=== PATIENT | female | born 1935 | race Caucasian/White ===

== ENCOUNTER 2018-09-20 08:31 | Inpatient (IN) ==
--- NOTE | 2018-09-20 09:16 | PROVIDER DOCUMENTATION ---
HPI-General Adult - General Chief Complaint: Edema Stated Complaint: LEFT LEG SWOLLEN Time Seen by Provider: 09/20/18 09:04 Source: patient, family Allergies/Adverse Reactions: Patient Allergies Allergy/AdvReac Type Severity Reaction Status Date / Time nitrofurantoin AdvReac RASH Verified 10/05/16 09:44 macrocrystalline * [From Macrodantin] Home Medications: Home Medication List Medication Instructions Recorded Confirmed Last Taken Type Aspirin [Aspir-Low] 81 mg PO DAILY 10/05/16 10/05/16 10/04/16 08:00 History Benzonatate [Tessalon Perle] 100 mg PO Q8H PRN PRN #15 capsule 10/05/16 Unknown Rx Hydrocodone/Acetaminophen [[place] 1 each PO Q6H PRN PRN #20 tablet 10/05/16 Unknown Rx 10-325 Tablet] Omeprazole [Prilosec] 40 mg PO DAILY 10/05/16 10/05/16 10/04/16 07:30 History - History of Present Illness -Gen Adult Nature of Presenting Problems: PLEASANT 83 YEAR OLD WITH NO MEDICAL HISTORY STATES SHE ONLY TAKES PRILOSEC AT HOME CAME IN TODAY WITH CONCERN OF LEFT LOWER EXTREMITY SWELLING SINCE THURSDAY. PATIENT STATES IT STARTED THURSDAY EVENING BUT HAS GETTING PROGRESSIVELY WORSEN. PATIENT DENIES RECENT TRAVEL, INJURY, OR HOSPITALIZATION. STATS SHE HAS HAD RIGHT KNEE REPLACEMENT 7 YEARS AGO; NOT LEFT. STATES SHE HAS BOTH "VEIN STRIPPED" OF HER BOTH BILATERAL LOWER EXTREMITY DUE TO VARICOSE VEIN TWO YEAR AGO. Review of Systems - Adult - REVIEW OF SYSTEMS - ADULT Constitutional: reports: no symptoms reported Eyes: reports: no symptoms reported Ears, Nose, Mouth & Throat: reports: no symptoms reported Cardiovascular: reports: no symptoms reported Respiratory: reports: no symptoms reported. denies: cough, dyspnea on exertion , shortness of breath, wheezing Gastrointestinal: reports: no symptoms reported Genitourinary: reports: no symptoms reported Musculoskeletal: reports: other (LEFT LOWER EXTREMITY SWELLING.) Integumentary: reports: no symptoms reported Neurological: reports: no symptoms reported Psychiatric: reports: no symptoms reported Endocrine: reports: no symptoms reported Hematologic/Lymphatic: reports: no symptoms reported Allergic/Immunologic: reports: no symptoms reported Past History - Adult - PAST MEDICAL HISTORY-ADULT Review of Records: reports: Old Records Reviewed Major Childhood Illnesses: reports: denies history Cardiovascular: reports: denies history Respiratory: reports: denies history Gastrointestinal: reports: GERD Obstetrical/Gynecological: reports: denies history Genitourinary: reports: denies history Musculoskeletal: reports: denies history Neurological: reports: denies history Endocrine/Immune: reports: denies history Other Conditions: reports: denies history - PRIOR SURGERIES/PROCEDURES Surgical/Procedure History: reports: appendectomy, hysterectomy, tonsillectomy - IMMUNIZATION STATUS Childhood Immunizations: See Nurse Assessment Flu Vaccine: See Nurse Assessment - FAMILY HISTORY Family History: reviewed, not pertinent Physical Exam-General - PHYSICAL EXAM-ADULT Initial Vital Signs Reviewed: Yes - CONSTITUTIONAL General Appearance: appears well, alert, no apparent distress - EYES Eyes: PERRL/EOMI - HEAD, EARS, NOSE, MOUTH & THROAT HENMT: normocephalic/atraumatic, moist mucous membranes, normal ENT inspection - NECK Neck: non-tender, full range of motion, supple - RESPIRATORY Respiratory: chest non-tender, lungs clear, normal breath sounds, no pleuratic chest pain, no respiratory distress, no accessory muscle use - CARDIOVASCULAR Cardiovascular: normal peripheral pulses, regular rate, rhythm, no edema, no gallop, no JVD, no murmur - GASTROINTESTINAL (ABDOMEN) Abdominal Exam: normal bowel sounds, non tender, soft - MUSCULOSKELETAL Back Exam: normal inspection, no CVA tenderness, no vertebral tenderness Extremity: normal range of motion, non-tender, normal gait, swelling (COMPLETE LEFT LOWER EXTREMITY; PERIPHERAL PULSE INTACT.) - SKIN Integumentary: normal color, normal turgor, warm/dry - NEUROLOGIC Neurologic: grossly normal - PSYCHIATRIC Psych/Mental Status: normal mood/affect, normal thought content, normal thought process, oriented x 3 Progress - PLAN OF CARE/RESULTS Progress/Plan/Lab Results: Vital Signs - 8 hr 09/20/18 08:38 Temperature 97.3 F L Pulse Rate 77 Respiratory Rate 18 Blood Pressure 138/91 O2 Sat by Pulse Oximetry 96 Orders Category Date Time Status Nursing- Obtain EKG once Care 09/20/18 09:11 Ordered BASIC METABOLIC PANEL [CHEM] Stat Lab 09/20/18 09:11 Uncollected CBC WITH ELECTRONIC DIFF [HEME] Stat Lab 09/20/18 09:11 Uncollected CK PROFILE [SP CHEM] Stat Lab 09/20/18 09:11 Uncollected PRO B-NATRIURETIC PEPTIDE Stat Lab 09/20/18 09:11 Uncollected PROTIME WITH INR [COAG] Stat Lab 09/20/18 09:11 Uncollected PTT [COAG] Stat Lab 09/20/18 09:11 Uncollected TROPONIN T Stat Lab 09/20/18 09:11 Uncollected EKG [EKG] Stat Ther 09/20/18 09:11 Ordered Venous U/S Left Leg Stat Ther 09/20/18 09:10 Ordered Result Diagrams: 09/20/18 09:11 09/20/18 09:11 - REASSESSMENT Reassessment #1 Time Reassessed: 10:08 Status: other (PER OFFENSIVE COORDINATOR; COMPLETE OCCLUSION OF BOTH DEEP AND SUPERFICIAL. PAGING SURGEON.) Reassessment #2 Time Reassessed: 10:55 Status: other (SPOKE TO SURGEON OF PATIENT WITH NO PAST MEDICAL HISTORY WITH US REVEALING COMPLETE OCCLUSION OF SUPERFICIAL AND DEEP AND LOWER EXTREMITY COLD TO TOUCH; SURGEON RECOMMEND SPEAKING/CONSULTING TO HOSPITALIST FOR HEPARIZATING PATIENT AND POSSIBLE OBSERVATION. PENDING HOSPITALST TO RETURN CALL.) Reassessment #3 Time Reassessed: 11:21 Status: other (BEDSIDE DORSALIS PEDIS PULSE AUDIABLE BY BESDIE DOPPLER; PENDING HOSPITALIST TO RETURN CALL.) Reassessment #4 Time Reassessed: 11:33 Status: other (SPOKE TO HOSPITALIST AND RECOMMEND ADMISSION AND WILL START LOVENOX WEIGHT BASED. [facility] Departure - Departure Date of Disposition Decision: 09/20/18 Time of Disposition Decision: 11:33 DIAGNOSIS: DVT (deep venous thrombosis) Disposition: ADMITTED INPATIENT 09 Certified Medical Emergency: Emergent Condition: Fair Referrals and Follow-Ups: Danish Kumar MD [Primary Care Provider] - - Critical Care Note This patient required my direct & personal management of CC.: No Attestation - Physician/ CHEL Attestation Patient care was provided by Advanced Practice Provider:: No The physician spent face to face time with patient:: Yes Advanced Practice Provider documentation review:: Supervising physician onsite and consulted in the evaluation and care of this patient. The physician did have a face to face encounter with the patient.
[2018-09-20 10:01] LABS: BASO# 0.04 X1000 (0.0-0.2); BASO% 0.4 % (0.0-0.8); EOS# 0.14 X1000 (0.0-0.7); EOS% 1.3 % (0.0-10.0); HEMATOCRIT 42.4 % (37.0-47.0); HEMOGLOBIN 13.2 g/dL (12.0-16.0); IMM GRAN# 0.02 X1000 (0.0-0.04); IMM GRAN% 0.2 % (0.0-0.5); LYMPH# 1.25 X1000 (1.2-3.4); LYMPH% 11.3 % (20.5-51.1); MCH 28.5 PG (27-31); MCHC 31.1 g/dL (33-37); MCV 91.6 FL (81-99); MONO# 0.93 X1000 (0.11-0.59); MONO% 8.4 % (1.7-9.3); MPV 9.4 FL (7.4-10.4); NEUT# 8.71 X1000 (1.4-6.5); NEUT% 78.4 % (42.2-75.2); PLT 287 X1000 (130-400); RBC 4.63 XMIL (4.2-5.4); RDW 13.7 % (11.5-14.5); WBC 11.09 X1000 (4.8-10.8)
[2018-09-20 10:07] LABS: INR 0.98; PROTIME 13.8 Seconds (11.0-16.0)
[2018-09-20 10:08] LABS: PTT 34.7 Seconds (22.3-41.8)
[2018-09-20 10:19] LABS: AGAP 14; BUN 15 mg/dL (8-22); CALCIUM 9.5 mg/dL (8.8-10.2); CHLORIDE 98 mmol/L (98-107); CK PROFILE 133 U/L (24-173); COSMO 278; CREATININE 0.8 mg/dL (0.5-0.9); ESTIMATED GFR > 60; GLUCOSE 123 mg/dL (70-104); POTASSIUM 4.6 mmol/L (3.5-5.1); SODIUM 138 mmol/L (136-145); TCO2 26 mmol/L (25-35)
--- NOTE | 2018-09-20 10:23 | EKG Report ---
Test Performed on : 09/20/2018 10:19:22 AM Test Reason : CP Blood Pressure : / mmHG Vent. Rate : 066 BPM Atrial Rate : 066 BPM P-R Int : 168 ms QRS Dur : 078 ms QT Int : 430 ms P-R-T Axes : -15 -07 063 degrees QTc Int : 450 ms Normal sinus rhythm. Cannot rule out Inferior infarct , age undetermined Abnormal ECG When compared with ECG of 18-NOV-2011 09:58, Minimal criteria for Inferior infarct are now present Unconfirmed Result
[2018-09-20] MEDS ORDERED: HEPARIN IV ONE ×4 (10:42→11:15)
[2018-09-20] MEDS ORDERED: NS IV ONE (11:15)
[2018-09-20] MEDS ORDERED: LOVENOX 1 MG/KG SUBQ ONE (11:34)
[2018-09-20] MEDS ORDERED: ZOFRAN IV PRN (11:39)
[2018-09-20] MEDS ORDERED: LOVENOX SUBQ ONE (11:45)
[2018-09-20] MEDS: TYLENOL PO PRN ×2 (11:55→23:04)
--- NOTE | 2018-09-20 14:00 | HISTORY AND PHYSICAL ---
PRIMARY CARE PROVIDER: Dr. Kumar CHIEF COMPLAINT: Left lower extremity swelling. HISTORY OF PRESENT ILLNESS: Ms. Yajaira Rodriguez is an 83-year-old, female with a medical history of DJD in the knees, GERD, but essentially no other history. She states that Thursday evening she started noticing swelling in her left lower extremity, it has happened in the past, so she did not have any concerns until it started progressively swelling over the couple of days. Today is Thursday, it is now swollen to the point, it is very tight, she does have a pulse, but the capillary refill is a little low in the smaller toes. She denies any pain except for when she was trying to take a shower. She states she has had this problem in the past but not to this extent, it would only swelling for a couple of days and she would wear Juan Carlos hose to get rid of the swelling with the last event being around 6 months ago. She had an ultrasound here, tech report shows that there is total occlusion, left femoral DVT, and superficial that is pretty extensive, so she will be started on Lovenox, weight-based dosing and admitted to the medical floor. PAST MEDICAL HISTORY: 1. 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 2. Varicose veins. 3. GERD. 4. Borderline diabetes. SOCIAL HISTORY: Denies tobacco, alcohol, or illicit drug use. Lives at home with her of 62 years. SURGICAL HISTORY: 1. Hysterectomy. 2. Right knee scope. 3. Total right knee replacement. 4. Bilateral vein collapsing for varicose veins around 2 years ago. FAMILY HISTORY: Mother had severe diabetes. Father had coronary artery disease, myocardial infarction at age 70. ALLERGIES: Nitrofurantoin. HOME MEDICATIONS: Have not been fully verified, but it looks like she is on aspirin and Prilosec. REVIEW OF SYSTEMS: A 14-point review of systems was completed and all are negative except as mentioned above and in HPI. She denies any injuries to the leg, no long travel in the last month, no recent hospital stays. She states that she is pretty active. Has no other complaints. PHYSICAL EXAMINATION: VITAL SIGNS: Temperature 97.3. Heart rate 64. Respiratory rate 14. Blood pressure 138/79. O2 saturation 100% on room air. GENERAL: Ms. Yajaira Rodriguez is an 83-year-old female. She is in no acute distress. She is able to answer questions appropriately. HEENT: Atraumatic and normocephalic. Pupils are equal, round and reactive to light. Extraocular movements were intact. Mucous membranes are moist. NECK: Trachea midline. CARDIOVASCULAR: S1, S2, regular rate and rhythm. No rubs, gallops, or murmurs. No lower extremity edema of the right lower extremity but there is significant tight, almost nonpitting of the left lower extremity. She has +2 dorsalis pulses, +2 radial pulses. Negative JVD or carotid bruits. There is good, less than 3 second refill on her large toe on the left, but prolonged capillary refill of the smaller toes. PULMONARY: Clear to auscultation with bilateral breath sounds. No accessory muscle use or work of breathing noted. GASTROINTESTINAL: Soft, nontender, nondistended. Positive bowel sounds x4. EXTREMITIES: Moves all extremities equally except for left lower extremity due to the significant swelling. NEUROLOGICAL: A and O x3. Follows commands. Sensory is intact. SKIN: Warm, dry, and intact except for very tight skin around the left lower extremity. LABORATORY DATA: White blood cells 11, hemoglobin 13, hematocrit 42, platelet count 287. INR 0.98. PTT 34.7. Sodium 138, potassium 4.6, BUN 15, creatinine 0.8, glucose 123, calcium 9.5, CK 133, troponin less than 0.01. ProBNP 28. IMAGING: EKG: There was a reported total occlusion, femoral DVT of the left superficial and deep vein that was reported by the tech. EKG: Normal sinus rhythm, rate 66, QTC 50. ASSESSMENT AND PLAN: 1. Extensive left lower extremity femoral deep venous thrombosis, also superficial venous thrombosis with no history that could cause a deep venous thrombosis, there is no surgery on that side, no recent travel, she does not smoke. No hormone replacement therapy. No obvious reason that she would have a deep venous thrombosis. She is consistently on the go, is frequently walking. Dr. Armstrong with hematology has been consulted for any further recommendations. She will be started on Lovenox 1 mg/kg q.12 hours for now. 2. Gastroesophageal reflux disease. Continue proton pump inhibitor. 3. Deep venous thrombosis prophylaxis. Again, she will be on the Lovenox, weight-based. Dictated by EVELIN Bailey for Amara Paz MD cc: EVELIN Bailey MD
--- NOTE | 2018-09-20 21:30 | HEMO/ONC CONSULTATION ---
DATE: 09/20/2018 CHIEF COMPLAINT: Waiting on further evaluation and management patient's left leg DVT. HISTORY OF PRESENT ILLNESS: Ms. Rodriguez is an 83-year-old female that has had problems with some leg swelling that comes off and on for quite a while now but on Thursday patient had a significant swelling to that left lower extremity. The patient's swelling continued to get worse the past couple days. The patient decided to go to emergency department further evaluation at that time. While in emergency department patient had an lower extremity Doppler that showed complete occlusion of both deep and superficial veins on that left lower extremity. No family history of blood clots. No reason for immobility. The patient was admitted at that time for further evaluation and management. 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 PAST SURGICAL HISTORY: Hysterectomy, right knee scope, total right knee replacement, bilateral vein for varicose veins around 2 years ago. SOCIAL HISTORY: Denies any tobacco, alcohol, illicit drug use. FAMILY HISTORY: Diabetes, coronary artery disease, myocardial infarctions. ALLERGIES: Nitrofurantoin. HOME MEDICATIONS: Low-dose aspirin, Prilosec. REVIEW OF SYSTEM: Negative what mentioned HPI. PHYSICAL EXAM: Vital Signs: Temperature 98.2 degrees, heart rate 65, respiratory rate 18, blood pressure 119/46, saturating 100% on room air. General: Patient is awake lying in bed, no acute distress noted. HEENT: Anicteric. Pupils PERRLA. Mucous membranes moist. Neck: Supple. Trachea midline. No JVD noted. Lymph node survey: No palpable lymphadenopathy. Cardiovascular: S2 regular rate and rhythm. Chest: Bilateral breath sounds. Clear to auscultation. Abdomen: Soft, nontender. Bowel sounds present all 4 quadrants. Skin: Warm, dry, intact. No petechiae, no clubbing, no rashes, no cyanosis. Extremities: Left lower extremity has pitting edema to that left lower extremity. Neurologic: Alert and oriented x3. No focal deficits noted. LABORATORY DATA: White blood cell count is 11.09, hemoglobin 13.2, hematocrit 42.4, platelets are 287,000, potassium 4.6, BUN 15, creatinine 0.8. RADIOLOGY RESULTS: Venous Doppler left lower extremity preliminary results reported by windshield technician showed extensive clot in the left lower extremity with complete occlusion of both the deep and superficial veins. ASSESSMENT AND PLAN: 1. Extensive left lower extremity deep venous thrombosis: Patient been started on Lovenox at this time. Hypercoagulable workup has been ordered and pending. Patient will continue her Lovenox until that left leg is symptomatically better. At that time we will look at switching to an oral medication at that time. 2. Gastroesophageal reflux disease. Continue proton pump inhibitors as ordered. Plan of care discussed Dr. Armstrong. Dictated by EVLEIN Moctezuma for Sandoval Armstrong MD Patient seen and examined. Extensive DVT without obvious reason. Check hypercoaguable state. Continue lovenox for about 3 days and then change to xarelto. Sandoval Armstrong MD. cc: EVELIN Moctezuma MD [facility]
[2018-09-20] MEDS: LOVENOX SUBQ SCH (23:04)
[2018-09-21] MEDS: PRILOSEC PO SCH (06:45)
[2018-09-21 06:55] LABS: BASO# 0.04 X1000 (0.0-0.2); BASO% 0.6 % (0.0-0.8); EOS# 0.29 X1000 (0.0-0.7); EOS% 4.1 % (0.0-10.0); HEMATOCRIT 38.9 % (37.0-47.0); HEMOGLOBIN 12.2 g/dL (12.0-16.0); LYMPH# 2.23 X1000 (1.2-3.4); LYMPH% 31.8 % (20.5-51.1); MCH 28.6 PG (27-31); MCHC 31.4 g/dL (33-37); MCV 91.1 FL (81-99); MONO# 0.82 X1000 (0.11-0.59); MONO% 11.7 % (1.7-9.3); MPV 9.4 FL (7.4-10.4); NEUT# 3.63 X1000 (1.4-6.5); NEUT% 51.8 % (42.2-75.2); PLT 255 X1000 (130-400); RBC 4.27 XMIL (4.2-5.4); RDW 13.5 % (11.5-14.5); WBC 7.01 X1000 (4.8-10.8)
[2018-09-21 06:59] LABS: INR 1.03; PROTIME 14.3 Seconds (11.0-16.0)
[2018-09-21 07:07] LABS: PTT 59.9 Seconds (22.3-41.8)
[2018-09-21 07:19] LABS: AGAP 12; ALB/GLOB RATIO 1.4; ALBUMIN 3.9 g/dL (3.5-5.0); ALKALINE PHOSPHATASE 73 U/L (32-104); BUN 14 mg/dL (8-22); CALCIUM 8.5 mg/dL (8.8-10.2); CHLORIDE 99 mmol/L (98-107); COSMO 274; CREATININE 0.8 mg/dL (0.5-0.9); ESTIMATED GFR > 60; GLUCOSE 131 mg/dL (70-104); GOT 16 U/L (10-30); GPT 11 U/L (10-36); POTASSIUM 4.4 mmol/L (3.5-5.1); SODIUM 136 mmol/L (136-145); TCO2 25 mmol/L (25-35); TOTAL BILIRUBIN 0.62 mg/dL (0.20-1.00); TOTAL PROTEIN 6.7 g/dL (6.3-8.3)
[2018-09-21] MEDS ORDERED: ASPIRIN EC PO SCH (09:00)
[2018-09-21] MEDS: LOVENOX SUBQ SCH ×2 (11:14→20:33)
--- NOTE | 2018-09-21 12:11 | HEMO/ONC PROGRESS NOTE ---
DATE: 09/21/2018 SUBJECTIVE: Patient continues to have swelling to the lower extremity. Patient denies any new symptoms or complaints. OBJECTIVE: Vital Signs: Temperature 98.1, heart rate 61, respiratory 18, blood pressure 132/55, saturation 97% on room air. General: Patient is awake, lying in bed, in no acute distress noted. HEENT: Anicteric. Pupils round and mucous membranes moist. Cardiovascular: S1- S2 regular rate and rhythm. Chest: Bilateral breath sounds clear to auscultation. Abdomen soft , nontender. Bowel sounds present in all 4 quadrants. Extremities: Continue to have left lower extremity pitting edema. Neurologic: Alert and oriented x3. No focal deficits noted. LABORATORY DATA: White cell count 7.01, hemoglobin 12.2, hematocrit 38.9, platelets are 255. Potassium 4.4. BUN 14, creatinine 0.8. ASSESSMENT AND PLAN: Extensive left lower extremity deep venous thrombosis: The patient will continue Lovenox until the left leg is symptomatically better. hypercoaguable workup pending. We will follow up on those labs. We will continue to monitor closely at this time. Dictated by EVELIN Moctezuma for Sandoval Armstrong MD Patient seen and examined. Patient reports that her leg swelling feels a little better. On exam her left lower cavity appears to be slightly less swollen. Continue Lovenox for now. Hold of Xarelto. Discussed with Dr. Kuhn. Sandoval Armstrong M.D. cc: EVELIN Moctezuma MD [facility]
--- NOTE | 2018-09-21 13:25 | PROGRESS NOTE ---
DATE: 09/21/2018 SUBJECTIVE: Patient admitted on 09/20/2018 which was yesterday for lower extremity swelling. She sees Dr. Danish Kumar. An 83-year-old, female with medical history of degenerative joint disease in both knees, gastroesophageal reflux disease but essentially no other history. She states that on Thursday she noticed swelling in the left lower extremity. It has happened in the past. So, she did not have much concern, and it started progressively swelling over the last couple of days. It is swollen to the point that it is very tight, so she presented here and found DVT. Once again, I reviewed her past medical history. 1. Degenerative joint disease in knees. 2. Varicose veins. 3. Gastroesophageal reflux disease. 4. Borderline diabetes. PAST SURGICAL HISTORY: Hysterectomy. Right knee scope. Right total knee replacement. Bilateral vein collapse. Varicose veins around 2 years ago. Admitted with left extremity DVT. Dr. Armstrong is following for hematology. Started on Lovenox 1 mg/kg q.12 hours. She has had diminished swelling in the leg and feels better. She is eating well. Bowels are moving. I did cancel physical therapy right now. OBJECTIVE: Temperature 98.1, pulse 61, respirations 14, blood pressure 132/55 pupils are equal and round. Lungs are clear in all lung breaux. Cardiovascular: Regular rate without murmur or S3. Abdomen is soft. Skin is warm and dry. ASSESSMENT AND PLAN: Deep venous thrombosis, left leg. Continue Lovenox for 3 days and then switch her to p.o. Probably could let her go home at that time. The degree of swelling will limit her ambulation just to go to the bathroom. She is on Lovenox 80 mg subcutaneous q.12, and she is taking Prilosec 40 mg a day. cc: Johnson Kuhn MD
--- NOTE | 2018-09-21 13:57 | Extremity Venous Study ---
PROCEDURE NAME: Venous U/S Left Leg - 09/20/2018 REFERRING PHYSICIAN: Dr. King from the emergency department. IDENTIFICATION: An 83-year-old female. FREIGHT CALLER: Jose Antonio Ashby RVT. INDICATIONS: Edema and discoloration of left lower extremity suggestive of deep venous thrombosis. FINDINGS: The left common femoral vein and its branches, deep and superficial femoral veins were satisfactorily imaged. They had acute deep venous thrombosis involving all the veins, extending down into the left popliteal vein and the small veins below the left knee. She also has clot involving her left great saphenous vein. IMPRESSION: 1. Extensive deep venous thrombosis involving the left lower extremity as described above. 2. Left superficial venous thrombosis in the great saphenous vein. cc: Nadeen Sanchez MD
[2018-09-22] MEDS: PRILOSEC PO SCH (07:03)
--- NOTE | 2018-09-22 08:42 | HEMO/ONC PROGRESS NOTE ---
DATE: 09/22/2018 SUBJECTIVE: The patient says she is slowly feeling better. Patient has swelling and pain to the leg. Continues to improve. OBJECTIVE: Vital Signs: Temperature 98.0 degrees, heart rate 71, respiratory rate 18, blood pressure 118/47, 95% on room air. General: Patient is awake, lying in bed, no acute distress noted. HEENT: Anicteric. Pupils PERRLA. Mucous membranes appear to be moist. Cardiovascular: S1, S2. Regular rate and rhythm. Chest: Bilateral breath sounds. Clear to auscultation. Abdomen: Soft, nontender. Bowel sounds present all 4 quadrants. Extremities: Left lower extremity edema continues to improve. Neurologic: Alert and oriented x3. No focal deficits noted. LABORATORY DATA: White blood cell count 7.01, hemoglobin 12.2, hematocrit 38.9, platelets are 255. ASSESSMENT AND PLAN: Extensive left lower extremity deep venous thrombosis: Hypercoagulable workups so far negative/still pending. We will continue to follow with those labs. Left leg edema continues to decrease. Continue Lovenox at this time, hope for transition to oral medications soon. Dictated by EVELIN Moctezuma for Sandoval Armstrong MD cc: EVELIN Moctezuma MD
[2018-09-22] MEDS: LOVENOX SUBQ SCH ×2 (09:06→21:30)
--- NOTE | 2018-09-22 12:42 | PROGRESS NOTE ---
DATE: 09/22/2018 SUBJECTIVE: Ms. Rodriguez feels her leg is much better. Less swelling. OBJECTIVE: Vital signs: Temp is 98.0 degrees, pulse 70, respirations 18, blood pressure 118/40. HEENT: Pupils are equal and round. Lungs: Clear in all lung breaux. Cardiovascular: Regular rhythm and rate without murmur or S3. Extremities: Left leg with really diminished swelling. Maybe trace pitting edema over the anterior tsai. Doing much better. Chest: No complaints of pleuritic pain or shortness of breath. ASSESSMENT AND PLAN: Deep vein thrombosis, left leg. I think she has a couple more days of Lovenox and then hopefully we can get her home and switch her to p.o. anticoagulant. Hypercoagulable workup still pending; so far negative. cc: Johnson Kuhn MD
[2018-09-23] MEDS: PRILOSEC PO SCH (06:06)
--- NOTE | 2018-09-23 09:08 | HEMO/ONC PROGRESS NOTE ---
DATE: 09/23/2018 SUBJECTIVE: The patient says she continues to feel better. The patient says pain in the leg is gone. The patient said swelling continues to decrease. OBJECTIVE: Vital Signs: Temperature 98.7 degrees, heart rate 64, respiratory rate 20, blood pressure 105/83, saturation 97% on room air. General: The patient is awake, lying in bed, no acute distress noted. HEENT: Anicteric. Pupils PERRLA. Mucous membranes moist. Cardiovascular: S1, S2. Regular rate and rhythm. Chest: Bilateral breath sounds. Clear to auscultation. Abdomen: Soft, nontender. Bowel sounds present in all 4 quadrants. Extremities: Left lower extremity with very mild edema noted. Neurologic: Alert and oriented x3. No focal deficits noted. LABORATORY DATA: White blood cell count 7.01, hemoglobin 10.2, hematocrit 38.9 , platelets are 255. Potassium 4.4, BUN 14, creatinine 0.8. ASSESSMENT AND PLAN: Extensive left lower extremity deep venous thrombosis. Hypercoagulable workup so far is negative. The patient has since continued to improve. OK to transition to Xarelto. Plan of care discussed with Dr. Armstrong. Dictated by EVELIN Moctezuma for Sandoval Armstrong MD cc: EVELIN Moctezuma MD [facility]
[2018-09-23] MEDS: LOVENOX SUBQ SCH ×2 (09:17→21:05)
[2018-09-23] MEDS: ZYRTEC PO SCH (11:26)
--- NOTE | 2018-09-23 13:01 | PROGRESS NOTE ---
DATE: 09/23/2018 SUBJECTIVE: Her leg is much better. Still has some swelling to go down. No pain or discomfort. No pleuritic pain. No shortness of breath. OBJECTIVE: Vital Signs: Temperature 98.7 degrees, pulse 64, respirations 22, blood pressure 105/83. HEENT: Pupils are equal and round. Lungs: Clear in all lung breaux. Cardiovascular: Regular rhythm and rate without murmur or S3. Abdomen: Soft. Skin: Warm and dry. ASSESSMENT AND PLAN: Extensive left lower extremity deep venous thrombosis. Hypercoagulable workup is so far negative. She continues to improve clinically. Swelling going down in the leg. No sign of pulmonary thromboemboli. Consider Xarelto and I think she has a prescription already for Xarelto. So, will discuss with Dr. Armstrong and see. Most likely she may get to go home tomorrow. cc: Johnson Kuhn MD
[2018-09-24] MEDS: PRILOSEC PO SCH (06:25)
[2018-09-24 07:17] VITALS: BP 132/59
[2018-09-24] MEDS: ZYRTEC PO SCH (08:13)
[2018-09-24] MEDS: LOVENOX SUBQ SCH (08:13)
--- NOTE | 2018-09-24 10:13 | HEMO/ONC PROGRESS NOTE ---
DATE: 09/24/2018 SUBJECTIVE: The patient says the leg continues to feel much better. The patient is still complaining of some mild swelling but continues to improve. OBJECTIVE: Vital Signs: Temperature 98.4 degrees, heart rate 62, respiratory rate 18, blood pressure 132/59, saturation 95% on room air. General: The patient is awake, lying in bed, no acute distress noted. HEENT: Anicteric. Pupils PERRLA. Mucous membranes moist. Cardiovascular: S1, S2. Regular rate and rhythm. Chest: Bilateral breath sounds clear to auscultation. Abdomen: Soft, nontender. Bowel sounds present in all 4 quadrants. Extremities: Left lower extremity has mild edema noted. Neurologic: Alert and oriented x3. No focal deficits noted. LABORATORY DATA: White blood cell count 7.01, hemoglobin 12.2, hematocrit 38.9 , platelets are 255,000. Factor V Leiden negative. ASSESSMENT AND PLAN: Extensive left lower extremity deep vein thrombosis. Symptoms continue to improve. She is transitioning to Xarelto. The patient will follow up in clinic upon discharge. Dictated by EVELIN Moctezuma for Sandoval Armstrong MD cc: EVELIN Moctezuma MD [facility]
--- NOTE | 2018-09-24 10:36 | DISCHARGE SUMMARY ---
ADMISSION DATE: 09/20/2018 DISCHARGE DATE: 09/24/2018 HISTORY: She is a patient of Dr. Danish Kumar. Dr. Armstrong has been following her. 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 She states that several days ago she noticed some swelling in the left lower extremity. It happened in the past so she did not have much concern but it progressed, got worse, and then ultrasound revealed a deep venous thrombosis in the left leg. Venous Doppler study done 09/20/2017 showed extensive deep venous thrombosis involving left lower extremity, left superficial venous thrombosis in the greater saphenous vein, involved the left common femoral vein and its branches. Deep superficial femoral veins were satisfactorily imaged and there was an acute deep venous thrombosis involving all the veins extending down to the left popliteal vein and some veins below the knee. So she was put on high dose Lovenox 1 mg/kg q.12 h. and swelling gradually went down. Because extent of the thrombus and risk for pulmonary thromboemboli, I kept her in bed. Swelling improved and she will be switched to Xarelto. [place] she could go home on 09/24/2018. She has the Xarelto at home and follow up with Dr. Armstrong. DISCHARGE MEDICATIONS: She will continue her aspirin 81 mg a day. She has Tessalon Perles. She has Kimball 10s that she can use at home if needed and Prilosec 40 mg a day and then she has samples already of Xarelto, which she will begin today. FOLLOWUP: Dr. Armstrong. cc: Johnson Kuhn MD
== END 2018-09-24 13:19 | disposition home or self-care (01) | DRG 301 ==
LOC: ED 08:31 → 3N 08:31 → SUATTDRO 11:59 → OBSVTOIN 11:59
PROVIDERS: ATTEND Emergency Medicine
CPT/HCPCS: 80048; 80053; 81240; 81241; 82550; 83090; 83735; 83880; 84484; 85025; 85300; 85301; 85302; 85306; 85610; 85612; 85613; 85730; 86147; 93005; 93971; 94761; 96372; 99285; A9270; J1644; J1650